=== PATIENT | female | born 1945 | race Asian ===

== ENCOUNTER → 2020-08-10 19:18 | Outpatient (CLI) | payer MEDICARE, OTHER, SELFPAY ==
--- NOTE | 2020-08-10 | DI.MRI.S_ITS ---
PROCEDURE: MR LUMBAR SPINE W CON INDICATIONS: Radiculopathy, lumbar region TECHNIQUE: Noncontrast sagittal T1 spin echo and T2 fast spin echo, sagittal STIR, axial T1 and T2 fast spin echo through the lumbar spine. In cases with scoliosis, additional coronal T2 fast spin echo may be performed. After the administration of contrast, sagittal and axial T1 spin echo with fat saturation through the lumbar spine. COMPARISON: None. FINDINGS: Image quality: Excellent. Alignment and curvature: There is normal bony alignment. Marrow: Marrow is of normal overall signal. Mild reactive endplate changes at L4-5. No acute vertebral body compression fractures. No suspicious marrow enhancement. Spinal cord: Conus medullaris terminates at the L1 level. Visualized spinal cord demonstrates normal signal, without suspicious enhancement. Paraspinous soft tissues: No paravertebral masses or abnormal enhancement. Discs: [id number] desiccation is present throughout the lumbar spine. L1-L2: Minimal disc bulge without spinal stenosis or foraminal narrowing. Facet and ligamentum flavum hypertrophy are present. L2-L3: Mild disc bulge without spinal stenosis. Minimal left foraminal narrowing. Facet and ligamentum flavum hypertrophy are present. L3-L4: Mild disc bulge with mild spinal stenosis. Epidural lipomatosis is present. There is mild right and minimal to mild left foraminal narrowing with facet and ligamentum flavum hypertrophy. L4-L5: Disc bulge with posterior left paracentral protrusion with what appears to be a small superimposed extrusion. Moderate spinal stenosis. It is causing compromise of the left lateral recess as well as proximal left foraminal narrowing. Minimal to mild right foraminal narrowing is present with facet and ligamentum flavum hypertrophy. L5-S1: Mild disc bulge with posterior right paracentral protrusion. Moderate left and [id number] right foraminal narrowing with facet hypertrophy. IMPRESSION: 1. Multilevel degenerative changes. 2. Multilevel spinal stenosis most notable at L4-5, secondary to disc bulge/protrusion/extrusion as well as facet/ligamentum flavum arthropathy and epidural lipomatosis. 3. Multilevel foraminal narrowing most severe at L5-S1 secondary to facet arthropathy. Dictated by: Jossie Chicas M.D. on 08/11/2020 at 15:56 Approved by: Jossie Chicas M.D. on 08/11/2020 at 16:02
== END ==
PROVIDERS: Referring Provider Family Medicine; Visit Provider Family Medicine
DX: M47.26 Other spondylosis with radiculopathy, lumbar region (principal); M47.27 Other spondylosis with radiculopathy, lumbosacral region; M51.16 Intervertebral disc disorders with radiculopathy, lumbar region; M51.17 Intervertebral disc disorders with radiculopathy, lumbosacral region; M48.061 Spinal stenosis, lumbar region without neurogenic claudication; M48.07 Spinal stenosis, lumbosacral region
CPT/HCPCS: 72149